=== PATIENT | male | born 1960 | race Caucasian/White ===

== ENCOUNTER 2021-06-14 10:03 | Outpatient (RCR) | payer BC | END 2021-06-23 | disposition home or self-care (01) | LOC: PT | DX: M54.50 Low back pain, unspecified (principal) ==

== ENCOUNTER 2021-06-27 14:42 | Outpatient (RCR) | payer BC | END 2021-06-30 17:00 | disposition home or self-care (01) | LOC: PT 14:42 | DX: M54.50 Low back pain, unspecified (principal) ==

== ENCOUNTER → 2024-01-08 | Outpatient (CLI) | payer BC | LOC: RAD 09:10 | DX: M16.0 Bilateral primary osteoarthritis of hip (principal); M25.852 Other specified joint disorders, left hip ==

== ENCOUNTER → 2024-04-22 | Outpatient (CLI) | payer BC ==
[~2024-04-22] MED LIST: Iohexol 300 - 100 ML VIAL IV ONE; Triamcinolone 40 MG/ML 1 ML VIAL IJ ONE
== END ==
LOC: RAD 07:00
DX: M25.552 Pain in left hip (principal); M25.551 Pain in right hip
CPT/HCPCS: J0665; J3301; Q9967